=== PATIENT | male | born 1990 | race Caucasian/White ===

== ENCOUNTER 2022-12-03 02:32 | Emergency (ER) | payer BC ==
[2022-12-03] MEDS ORDERED: LIDOCAINE 1% MPF 5 ML VIAL ONE ×2 (02:50→03:04)
[2022-12-03] MEDS ORDERED: TDAP (DIPHTH,PERTUSS(ACELL),TET VAC) 0.5 ML VIAL IMVAC ONE (03:05)
--- NOTE | 2022-12-03 03:22 | EDPHYS ---
Physician Documentation [facility] Name: Santana Benitez Age: 31 yrs Sex: Male : 1990 Arrival Date: 12/03/2022 Time: 02:40 Bed 2 Private MD: ED Physician Barron Pan HPI: 12/03 03:22 This 31 yrs old Male presents to ER via Ambulatory with complaints of Animal Bite. rt 03:22 Patient presents to the ED with a dog bite to the right ear on the pinna superior rt aspect. This occurred about 12 hours prior to arrival. The patient did not seek medical attention at that time. He stated that it continued to bleed significantly prompting him to come to the ED for further evaluation. He is not up-to-date on his tetanus immunization. Denies other acute complaints at this time, symptoms are moderate in severity, no other aggravating or alleviating factors.. Historical: - Allergies: 02:51 No Known Allergies; ll3 - Home Meds: 02:51 None [Active]; ll3 - PMHx: 02:51 None; ll3 - PSHx: 02:51 None; ll3 - Immunization history:: Client reports receiving the 2nd dose of the Covid vaccine. - Social history:: Smoking status: Patient denies any tobacco usage or history of. ROS: 03:22 Constitutional: Negative for fever, chills, and weight loss, MS/Extremity: Negative for rt injury and deformity, Skin: Negative for injury, rash, and discoloration, Neuro: Negative for headache, weakness, numbness, tingling, and seizure, Psych: Negative for depression, anxiety, suicide ideation, homicidal ideation, and hallucinations. 03:22 ENT: Positive for Dog bite, bleeding to right pinna. Exam: 03:22 Constitutional: This is a well developed, well nourished patient who is awake, alert, rt and in no acute distress. Head/Face: Normocephalic, atraumatic. Skin: Warm, dry with normal turgor. Normal color with no rashes, no lesions, and no evidence of cellulitis. MS/ Extremity: Pulses equal, no cyanosis. Neurovascular intact. Full, normal range of motion. Neuro: Awake and alert, GCS 15, oriented to person, place, time, and situation. Cranial nerves II-XII grossly intact. Motor strength 5/5 in all extremities. Sensory grossly intact. Cerebellar exam normal. Normal gait. Psych: Awake, alert, with orientation to person, place and time. Behavior, mood, and affect are within normal limits. 03:22 ENT: 2 cm laceration to the superior aspect of the right pinna, with 1 small area of arterial bleeding present. Vital Signs: 02:49 BP 149 / 102; Pulse 110; Resp 18; Temp 99.0(O); Pulse Ox 99% on R/A; Weight 81.19 kg ll3 (R); Height 5 ft. 6 in. (167.64 cm) (R); 02:49 Body Mass Index 28.89 (81.19 kg, 167.64 cm) ll3 Laceration: 03:22 Wound Repair of 2cm ( 0.8in ) subcutaneous laceration to right ear. Arterial bleeding rt noted.. Distal neuro/vascular/tendon intact. Anesthesia: Wound infiltrated with 2 mls of 1% lidocaine. Wound prep: Extensive cleansing with hibiclenz by nurse. Skin closed with 3 4-0 Prolene using interrupted sutures and sterile technique. Patient tolerated well. MDM: 02:54 Patient medically screened. rt 03:22 Differential diagnosis: Arterial injury, cartilaginous injury. Rabies Status: rt information regarding the need for rabies immunization is still pending no history of rabies immunization. Data reviewed: vital signs, nurses notes. I considered the following discharge prescriptions or medication management in the emergency department Medications were administered in the Emergency Department. See MAR. Test considered but Not performed: CT: No evidence of intracranial injury, CT scan not indicated. Counseling: I had a detailed discussion with the patient and/or guardian regarding: the historical points, exam findings, and any diagnostic results supporting the discharge/admit diagnosis, the need for outpatient follow up, to return to the emergency department if symptoms worsen or persist or if there are any questions or concerns that arise at home, Counseled patient that due to delayed presentation, primary closure carries a high risk of infection. Only the areas of arterial bleeding were sewed up. The patient was informed of the signs of infection instructed to return if the symptoms develop. Patient is comfortable with allowing the wound to heal by secondary intention. Response to treatment: the patient's symptoms have markedly improved after treatment. ED course: No evidence of cartilaginous injury,. 12/03 02:55 Order name: Wound Care; Complete Time: 03:37 rt Administered Medications: 03:10 Drug: Tetanus-Diphtheria Toxoid Adult 0.5 ml {Counter Attendant: [employer] ([employer]). Exp: pf1 07/07/2023. Lot #: [id number]. } Route: IM; Site: left deltoid; 03:37 Drug: Lidocaine (2 %) 5 ml {Note: Administered by Dr. Pan.} Volume: 5 ml; Route: ll3 Infiltration; 03:40 Follow up: Response: No adverse reaction ll3 Disposition Summary: 12/03/22 03:21 Discharge Ordered Location: Home rt Problem: new rt Symptoms: have improved rt Condition: Stable rt Diagnosis - Bitten by dog rt - Laceration without foreign body of right ear rt Followup: rt - With: Private Physician - When: 7 - 10 days - Reason: Staple/Suture removal Discharge Instructions: - Discharge Summary Sheet rt - Animal Bite, Adult rt Forms: - Medication Reconciliation Form rt - Thank You Letter rt - Antibiotic Education rt - Prescription Opioid Use rt Prescriptions: - Augmentin 875-125 mg Oral Tablet - take 1 tablet by ORAL route every 12 hours for 10 days; 20 tablet; Refills: 0, rt Product Selection Permitted Signatures: Malcolm Grayson RN RN ll3 Barron Pan MD MD rt Brandi cunningham RN RN pf1
--- NOTE | 2022-12-03 03:22 | ER ---
Nurse's Notes [facility] Name: Santana Benitez Age: 31 yrs Sex: Male : 1990 Arrival Date: 12/03/2022 Time: 02:40 Bed 2 Private MD: Diagnosis: Bitten by dog;Laceration without foreign body of right ear Presentation: 12/03 02:49 Chief complaint: Patient states: States I was breaking up a dog fight at the [place] [id number] correction and I got bit by a dog, bleeding to right ear noted. Coronavirus screen: Vaccine status: Patient reports receiving the 2nd dose of the covid vaccine. At this time, the client does not indicate any symptoms associated with coronavirus-19. Ebola Screen: No symptoms or risks identified at this time. Initial Sepsis Screen: Does the patient meet any 2 criteria? No. Patient's initial sepsis screen is negative. Does the patient have a suspected source of infection? No. Patient's initial sepsis screen is negative. Risk Assessment: Do you want to hurt yourself or someone else? Patient reports no desire to harm self or others. Onset of symptoms was December 02, 2022. 02:49 Method Of Arrival: Ambulatory 3 02:49 Acuity: MADY 3 3 Triage Assessment: 02:51 Bite description: bite sustained to right ear by a dog, animal information: ll3 vaccination(s) is unknown, was sustained 6-12 hours ago. Animal status: unknown and not captured, Animal control has not been notified. General: Appears uncomfortable, Behavior is calm, cooperative. Pain: Complains of pain in right ear. Neuro: Level of Consciousness is awake, alert, obeys commands, Oriented to person, place, time, situation. Respiratory: Respiratory effort is even, unlabored, Respiratory pattern is regular, symmetrical. Derm: Wound noted right ear Wound is Bleeding moderatly. Historical: - Allergies: 02:51 No Known Allergies; ll3 - Home Meds: 02:51 None [Active]; ll3 - PMHx: 02:51 None; ll3 - PSHx: 02:51 None; ll3 - Immunization history:: Client reports receiving the 2nd dose of the Covid vaccine. - Social history:: Smoking status: Patient denies any tobacco usage or history of. Screenin:38 [facility] ED Fall Risk Assessment (Adult) History of falling in the last 3 months, ll3 including since admission No falls in past 3 months (0 pts) Confusion or Disorientation No (0 pts) Intoxicated or Sedated No (0 pts) Impaired Gait No (0 pts) Mobility Assist Device Used No (0 pt) Altered Elimination No (0 pt) Score/Fall Risk Level 0 - 2 = Low Risk Oriented to surroundings, Maintained a safe environment, Educated pt \T\ family on fall prevention, incl call for assistance when getting out of bed. Abuse screen: Denies threats or abuse. Denies injuries from another. Nutritional screening: No deficits noted. Tuberculosis screening: No symptoms or risk factors identified. Assessment: 02:50 General: Appears in no apparent distress. uncomfortable, well groomed, well developed, pf1 Behavior is calm, cooperative, appropriate for age, quiet. 02:50 Pain: Complains of pain in face and right ear Pain currently is 1 out of 10 on a pain pf1 scale. Neuro: No deficits noted. Level of Consciousness is awake, alert, obeys commands, Oriented to person, place, time, situation. Cardiovascular: No deficits noted. Capillary refill < 3 seconds Patient's skin is warm and dry. Respiratory: No deficits noted. Airway is patent Trachea midline Respiratory effort is even, unlabored, Respiratory pattern is. GI: No deficits noted. No signs and/or symptoms were reported involving the gastrointestinal system. : No deficits noted. No signs and/or symptoms were reported regarding the genitourinary system. EENT: helix of right ear has bleeding noted,onset yesterday. Derm: Skin is intact, is healthy with good turgor, Skin is pink, warm \T\ dry. Musculoskeletal: No deficits noted. No signs and/or symptoms reported regarding the musculoskeletal system. Vital Signs: 02:49 BP 149 / 102; Pulse 110; Resp 18; Temp 99.0(O); Pulse Ox 99% on R/A; Weight 81.19 kg ll3 (R); Height 5 ft. 6 in. (167.64 cm) (R); 02:49 Body Mass Index 28.89 (81.19 kg, 167.64 cm) ll3 ED Course: 02:40 Patient arrived in ED. [id number] 02:41 Barron Pan MD is Attending Physician. rt 02:47 Car Leo, RN is Primary Nurse. as6 02:51 Triage completed. ll3 02:51 Arm band placed on Patient placed in an exam room, on a stretcher, on pulse oximetry. ll3 03:10 Irrigation of dogbite on face and right ear irrigated with normal saline Hibiclens pf1 solution Patient tolerated well. 03:37 Dressings: Kerlix X 1; right ear 4X4s X 1; right ear. ll3 03:38 Patient has correct armband on for positive identification. Bed in low position. Call ll3 light in reach. Side rails up X 1. 03:38 Assist provider with laceration repair on right ear that was 2.5 cm. or less using ll3 sutures. Set up tray. Performed by Barron Pan MD Dressed with 4X4s, Kerlix, Patient tolerated well. Patient did not have IV access during this emergency room visit. Administered Medications: 03:10 Drug: Tetanus-Diphtheria Toxoid Adult 0.5 ml {Rag Baler: [employer] ([employer]). Exp: pf1 07/07/2023. Lot #: [id number]. } Route: IM; Site: left deltoid; 03:37 Drug: Lidocaine (2 %) 5 ml {Note: Administered by Dr. Pan.} Volume: 5 ml; Route: ll3 Infiltration; 03:40 Follow up: Response: No adverse reaction ll3 Medication: 03:39 Vaccine Information Statement (VIS) provided today. Questions and/or concerns ll3 addressed. VIS edition date: May 19, 2021. Outcome: 03:21 Discharge ordered by . rt 03:38 Discharged to home ambulatory. ll3 03:38 Condition: stable 03:38 Discharge instructions given to patient, Instructed on discharge instructions, follow up and referral plans. medication usage, Demonstrated understanding of instructions, follow-up care, medications, Prescriptions given X 1. 03:40 Patient left the ED. ll3 Signatures: Deepa Olveraj6 Car Leo, RN BUCK as6 Malcolm Grayson RN RN ll3 Barron Pan MD MD rt Brandi cunningham RN RN pf1
[2022-12-03 04:39] VITALS: BP 149/102; TEMP 99; O2SAT 99
== END 2022-12-03 03:40 | disposition home or self-care (01) ==
LOC: ER 02:32
PROC: 0HQ2XZZ Repair Right Ear Skin, External Approach (ICD-10-PCS; principal; 2022-12-03)
DX: S01.311A Laceration without foreign body of right ear, initial encounter (principal); W54.0XXA Bitten by dog, initial encounter; Z23 Encounter for immunization
CPT/HCPCS: 90471; 99284; 12011; J2001